=== PATIENT | female | born 1965 | race African-American/Black ===

== ENCOUNTER 2017-04-22 20:59 | Emergency (ER) | payer OTHER ==
[2017-04-22] MEDS ORDERED: Benzonatate 100 MG CAP ONE (21:38)
[2017-04-22] MEDS ORDERED: Azithromycin 250 MG TAB ONE (21:38)
== END 2017-04-22 21:44 | disposition home or self-care (01) ==
LOC: MADERS 20:59
DX: J20.9 Acute bronchitis, unspecified (principal); B20 Human immunodeficiency virus [HIV] disease; E11.9 Type 2 diabetes mellitus without complications; F32.9 Major depressive disorder, single episode, unspecified; I10 Essential (primary) hypertension; Z86.73 Personal history of transient ischemic attack (TIA), and cerebral infarction without residual deficits; F17.210 Nicotine dependence, cigarettes, uncomplicated
CPT/HCPCS: 99283

== ENCOUNTER 2021-08-05 18:41 | Emergency (ER) | payer OTHER | END 2021-08-05 20:13 | disposition home or self-care (01) | LOC: MADERS 18:41 | DX: S92.512A Displaced fracture of proximal phalanx of left lesser toe(s), initial encounter for closed fracture (principal); I10 Essential (primary) hypertension; E11.9 Type 2 diabetes mellitus without complications; Z86.73 Personal history of transient ischemic attack (TIA), and cerebral infarction without residual deficits; F17.210 Nicotine dependence, cigarettes, uncomplicated ==

== ENCOUNTER 2024-07-25 20:10 | Emergency (ER) | payer OTHER | END 2024-07-25 21:48 | disposition home or self-care (01) | LOC: MADERS 20:10 | DX: U07.1 COVID-19 (principal); R05.9 Cough, unspecified; Z87.891 Personal history of nicotine dependence | CPT/HCPCS: 71046; 87428 ==

== ENCOUNTER 2025-05-04 18:24 | Emergency (ER) | payer OTHER ==
[2025-05-04] MEDS ORDERED: Ibuprofen 800 MG TAB ONE (19:32)
[2025-05-04] MEDS ORDERED: predniSONE 20 MG TAB ONE (19:32)
== END 2025-05-04 19:48 | disposition home or self-care (01) ==
LOC: MADERS 18:24
DX: J02.9 Acute pharyngitis, unspecified (principal); Z86.73 Personal history of transient ischemic attack (TIA), and cerebral infarction without residual deficits; Z87.891 Personal history of nicotine dependence
CPT/HCPCS: 87081; 87430; 99283; J7512